=== PATIENT | male | born 2000 | race Two or more races ===

== ENCOUNTER 2021-10-02 09:56 | Emergency (ER) | payer OTHER ==
[~2021-10-02] VITALS: Ht 175.3 cm; Wt 72.0 kg
[2021-10-02 11:36] VITALS: BP 125/65
== END 2021-10-02 11:32 | disposition home or self-care (01) ==
LOC: ER 09:56
DX: R51.9 Headache, unspecified (principal); M79.18 Myalgia, other site; Z20.822 Contact with and (suspected) exposure to COVID-19
CPT/HCPCS: 87426; 99283